=== PATIENT | female | born 1990 | race Hispanic/Latino ===

== ENCOUNTER 2025-01-11 11:23 | Emergency (ER) | payer SELFPAY ==
[2025-01-11] MEDS ORDERED: Acetaminophen 500 MG TAB ONE (12:37)
[2025-01-11] MEDS ORDERED: Ibuprofen 800 MG TAB ONE (12:38)
== END 2025-01-11 13:28 | disposition home or self-care (01) ==
LOC: ERS 11:23
DX: M25.561 Pain in right knee (principal); M25.562 Pain in left knee; Z75.8 Other problems related to medical facilities and other health care
CPT/HCPCS: 99283